=== PATIENT | male | born 1960 | race Two or more races ===

== ENCOUNTER 2021-12-25 05:55 | Day surgery (SDC) | payer OTHER ==
[~2021-12-25 05:55] MED LIST: ADULT LOW DOSE81 M1 PO; COZAAR50 MG PO; CRESTOR10 MG PO; HYDROCHLOROTH12.5 MG PO; VERELAN240 MG PO
== END 2021-12-25 11:05 | disposition home or self-care (01) ==
LOC: CIR.AMB 05:55
PROVIDERS: ATTEND Surgery Surgery of the Hand
DX: M65.841 Other synovitis and tenosynovitis, right hand (principal); Z20.822 Contact with and (suspected) exposure to COVID-19

== ENCOUNTER 2023-05-06 06:00 | Day surgery (SDC) | payer OTHER | END 2023-05-06 14:45 | disposition home or self-care (01) | LOC: CIR.AMB 06:00 | PROVIDERS: ATTEND Surgery Surgery of the Hand | DX: M65.842 Other synovitis and tenosynovitis, left hand (principal); Z20.822 Contact with and (suspected) exposure to COVID-19 ==